=== PATIENT | female | born 1990 | race Caucasian/White ===

== ENCOUNTER 2019-06-16 13:31 | Emergency (ER) | payer OTHER ==
[2019-06-16 13:42] VITALS: PULSE 83; BMI 28.7
[2019-06-16] MEDS ORDERED: morphine CARPU-JECT 4 MG/1 ML DISP.SYRIN IVPUSH ONE (14:10)
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
[2019-06-16] MEDS ORDERED: MORPHINE SULFATE 2 MG/ML VIAL ONE (14:28)
[2019-06-16] MEDS ORDERED: morphine SULFATE 4 MG/ML VIAL ONE (14:28)
[2019-06-16] MEDS ORDERED: KETAMINE HCL 500 MG/10 ML VIAL IV ONE (14:28)
[2019-06-16] MEDS ORDERED: KETAMINE HCL 200 MG/20 ML VIAL ONE (14:29)
[2019-06-16 16:03] VITALS: BP 109/63
--- NOTE | 2019-06-16 18:29 | PDOC ---
Documentation entered by Kaylie Henry SCRIBE, acting as scribe for Sarina Haddad MD. Sarina Haddad MD: This documentation has been prepared by the Elaine ross Nirvannie, SCRIBE, under my direction and personally reviewed by me in its entirety. I confirm that the documentation accurately reflects all work, treatment, procedures, and medical decision making performed by me. Attending Attestation - Resident Resident Name: Chris Levy - ED Attending Attestation I have performed the following: I have examined & evaluated the patient, The case was reviewed & discussed with the resident, I agree w/resident's findings & plan, Exceptions are as noted - HPI HPI: 06/16/19 15:55 The patient is a 29 year old female, with a significant past medical history of multiple shoulder dislocations (approx 10x), who presents to the emergency department with left shoulder pain and deformity. She notes she was leaning forward to pick something up at which time her shoulder became dislocated. Patient notes her symptoms to be similar to previous shoulder dislocations. She denies any further trauma, head/neck pain, or focal weakness. She denies recent fevers, chills, headache or dizziness. She denies recent nausea, vomiting , diarrhea or constipation. She denies recent dysuria, frequency, urgency or hematuria. She denies recent chest pain or shortness of breath. Allergies: NKDA Primary Care Physician: Cookie Cerrato [facility] - Physicial Exam PE: 06/16/19 18:27 agree with resident exam. Patient is in moderate distress. + clear anterior dislocation of L shoulder on exam. Hand is cold but with intact radial pulse and good cap refill. - Medical Decision Making 06/16/19 18:28 pt presents to the ED complaining of anterior shoulder dislocation. Reduced via external rotation under conscious sedation in the Ed. No fx on xray. Will discharge home with ortho follow up.
== END 2019-06-16 17:35 | disposition home or self-care (01) ==
LOC: JER 13:31
PROC: 0RSKXZZ Reposition Left Shoulder Joint, External Approach (ICD-10-PCS; principal; 2019-06-16)
PROC: 3E033NZ Introduction of Analgesics, Hypnotics, Sedatives into Peripheral Vein, Percutaneous Approach (ICD-10-PCS; 2019-06-16)
PROC: 3E030FZ Introduction of Intracirculatory Anesthetic into Peripheral Vein, Open Approach (ICD-10-PCS; 2019-06-16)
DX: M24.412 Recurrent dislocation, left shoulder (principal); X50.1XXA Overexertion from prolonged static or awkward postures, initial encounter; Y93.89 Activity, other specified; Y92.89 Other specified places as the place of occurrence of the external cause; Y99.8 Other external cause status; Z87.828 Personal history of other (healed) physical injury and trauma
CPT/HCPCS: 73030-TC-LT-FY; 99283-25

== ENCOUNTER 2019-12-23 04:45 | Day surgery (SDC) | payer OTHER ==
[2019-12-19 18:07] VITALS: BMI 30.9
[2019-12-23] MEDS ORDERED: ACETAMINOPHEN 325 MG TABLET (FP) PO ONE (07:00)
[2019-12-23] MEDS ORDERED: GABAPENTIN 300 MG CAPSULE PO ONE (07:00)
[2019-12-23] MEDS ORDERED: CELECOXIB 200 MG CAPSULE PO ONE (07:00)
[2019-12-23] MEDS ORDERED: ROPIVACAINE HCL 0.5% 30ML VIAL ONE (07:09)
--- NOTE | 2019-12-23 07:38 | HP ---
History & Physical Update - History History: No Change - Physical Physical: No Change - Assessment Assessment: No Change - Plan Plan: No Change
[2019-12-23] MEDS ORDERED: ROCURONIUM BROMIDE 50 MG/5 ML SYRINGE ONE ×2 (07:42→08:42)
[2019-12-23] MEDS ORDERED: fentaNYL CITRATE 250 MCG/5 ML VIAL ONE (07:43)
[2019-12-23] MEDS ORDERED: SUCCINYLCHOLINE CHLORIDE 200 MG/10 ML SYRINGE ONE (07:43)
[2019-12-23] MEDS ORDERED: PROPOFOL 20 ML ONE ×2 (07:43)
[2019-12-23] MEDS ORDERED: MIDAZOLAM HCL 2 MG/2 ML SINGLE DOSE VIAL ONE (07:43)
[2019-12-23] MEDS ORDERED: LIDOCAINE HCL 2% JELLY (5 ML/TUBE) ONE (07:45)
[2019-12-23] MEDS ORDERED: EPHEDRINE SULFATE/0.9% NACL/PF 50 MG/10 ML SYRINGE NR ONE (08:07)
[2019-12-23] MEDS ORDERED: PHENYLEPHRINE HCL 10 MG/1 ML SINGLE DOSE VIAL ONE (08:09)
[2019-12-23] MEDS ORDERED: TRANEXAMIC ACID 1000 MG/10 ML VIAL ONE (08:44)
[2019-12-23] MEDS ORDERED: HYDROmorphone HCl 2 MG/ML VIAL ONE (10:52)
[2019-12-23] MEDS ORDERED: NEOSTIGMINE METHYLSULFATE 0.5 MG/ML - 10 ML MDV ONE (11:29)
[2019-12-23] MEDS ORDERED: GLYCOPYRROLATE 0.2 MG/1 ML VIAL ONE (11:29)
[2019-12-23] MEDS ORDERED: KETOROLAC TROMETHAMINE 30 MG/1 ML VIAL ONE (11:40)
[2019-12-23] MEDS ORDERED: LIDOCAINE HCL/PF 2% SDV 5ML VIAL ONE (11:40)
[2019-12-23] MEDS ORDERED: ceFAZolin SODIUM 1 GM VIAL ONE (11:40)
[2019-12-23] MEDS ORDERED: DEXAMETHASONE SOD PHOSPHATE 4 MG/1 ML VIAL ONE (11:40)
[2019-12-23] MEDS ORDERED: VANCOMYCIN 1,000 MG VIAL (RESTRICTED TO ID ONLY) ONE (11:40)
[2019-12-23] MEDS ORDERED: ESMOLOL HCL 100,000 MCG/10 ML VIAL ONE (11:51)
[2019-12-23] MEDS ORDERED: PROMETHAZINE HCL 25 MG/1 ML VIAL ONE (12:33)
[2019-12-23] MEDS ORDERED: oxyCODONE HCL 5 MG TABLET PO PRN ×3 (12:43→14:31)
[2019-12-23] MEDS ORDERED: ONDANSETRON 4 MG/2 ML VIAL IVPUSH PRN (12:43)
[2019-12-23] MEDS ORDERED: PROMETHAZINE HCL 25 MG/1 ML VIAL IVPUSH PRN (12:43)
[2019-12-23] MEDS ORDERED: IBUPROFEN 400 MG TABLET (FP) PO PRN (14:31)
[2019-12-23] MEDS ORDERED: ACETAMINOPHEN 325 MG TABLET (FP) PO PRN (14:31)
--- NOTE | 2019-12-23 14:40 | OPR ---
Procedure: Left shoulder anterior capsulorrhaphy with coracoid bone transfer and conjoint tendon transfer (Latarjet): CPT 07410 Preoperative Diagnoses: Left shoulder recurrent instability Postoperative Diagnoses: Left shoulder recurrent instability Surgeon: Stan Benavidez DO Assistants: Russell Ha DO Anesthesia: General Anesthesia and Local infiltration analgesic with Rop ivicaine: suprascapular nerve, axillary nerve, local superficial field Estimated Blood Loss: 50 mL Drains: None Total IV Fluids: Per anesthesia record Specimens: None Implants: (2) 4.0mm cannulated partially threaded screws (Lau and NephRemicalm), 1.9mm SutureFix [place] Complications: None Disposition: PACU Condition: Hemodynamically stable Indications: Jossie Melton presented to us with chronic left shoulder pain and recurrent anterior instability that failed conservative measures. Her symptoms, signs, and imaging were consistent with the above noted diagnosis. She ultimately elected to proceed with surgical intervention after discussion of the risks, benefits, alternatives. 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 Due to the significant amount of bone loss, we agreed to proceed with an open stabilization with coracoid bone transfer. We discussed risks including but not limited to, bleeding, pain, infection, scarring, damage to neurovascular structures, blood clots, pulmonary embolus, need for additional surgery, incomplete relief of pain, and incomplete return of function. She expressed understanding and wished to proceed. She underwent preoperative medical evaluation clearance and optimization prior to surgery. Procedure Details: She was identified in the preoperative area. The left shoulder was marked as the operative site and consent was completed and confirmed. She was later transferred to the operating room and placed in supine position the operating room. Anesthesia was induced without difficulty. She was repositioned into beach chair with all bony prominences appropriately padded. The neck was in neutral alignment. The left upper extremity was prepped and draped in standard sterile fashion. A surgical time-out was performed identifying the correct patient, procedure, and site. Antibiotics were given within 1 hour prior to surgical incision. Examination under anesthesia: Passive range of motion of the left shoulder showed forward elevation of 170, abduction 100, external rotation at side 60, SABER 90, SABIR 40. This was compared to her contralateral shoulder which shows forward elevation of 170, abduction 100 external rotation at side 60, SABER 90, SABIR 40. There was grade III anterior translation of the left shoulder. We began the procedure with an incision from the inferior tip of the coracoid approximately 8 cm inferior towards the axillary fold. Sharp dissection was carried out through the subcutaneous tissues. Self-retaining retractors were placed. Subcutaneous flaps were developed. Deltopectoral interval was identified and cephalic vein was also identified, protected, and mobilized laterally. We developed a subdeltoid and subpectoral space, here we identified the coracoid process. We placed retractors superiorly. We divided the clavipectoral fascia lateral to the conjoint tendon and identified the CA ligament. Once self-retaining retractors were placed, we externally rotated the arm visualizing the coracoacromial ligament. We divided this approximately 1 cm from its lateral insertion onto the coracoid. We also divided the coracohumeral ligament inferiorly heading towards the lateral aspect of the coracoid. We then internally rotated the arm and turned our attention to the medial aspect of the coracoid. The pectoralis minor was sharply tenotomized subperiosteally off the medial aspect of the coracoid. We did not extend our incision medial to the tip of the coracoid not to disrupt the vascular supply to the coracoid bone graft. We worked our way along the medial aspect of the coracoid and inferiorly clearing the tissue using a blunt retractor and electrocautery. We found the bend of the coracoid as it turned into the scapular body. We placed a retractor medially to protect the medial structures as well as laterally. We used a curved angle blade 90 degrees to begin our coracoid osteotomy. This began our cut as we cut from medial to lateral and protected the inferior medial structures. We then completed the cut with a curved half-inch osteotome. Sharp edges were then resected with rongeur. We gained control of the coracoid bone block, released the coracohumeral ligament and remaining rotator cuff interval tissue from the lateral aspect of the coracoid and gently divided the tissue inferiorly. We now had obtained both the conjoint tendon as well as the coracoid bone for later transfer into the anterior-inferior scapular neck. We placed this aside under the pectoralis major and turned our attention to exposure of the anterior-inferior glenoid. With self-retaining retractors in place, we externally rotated the arm bringing the subscapularis muscle into view. We removed the bursal tissue over the subscapularis tendon and divided the subscapularis inline with the muscle fibers at its approximate midpoint through its natural raphe. Curved Ahmadi scissor was used to do this and was done sharply extending laterally into the lesser tuberosity insertion. We identified the underlying capsular tissue and dissected the muscular tissue above this and away from capsular tissue. We used a lap sponge and pushed it into the space above the capsule underneath the subscapularis muscle developing a pocket space in front of the anterior glenoid and scapular neck. We then placed anterior glenoid retractor here and blunt Hohmann inferiorly underneath the glenoid. We were able to palpate the axillary nerve and protect it throughout the case. Superior retraction was achieved with appendiceal retractor. We were then able to visualize the anterior capsular tissue that was clearly lax. We used a 15 blade to make a horizontal transection of the anterior capsule. We identified the inferior leaflet for later plication. We inserted a Fukuda retractor to retract the humeral head laterally. We resected the anterior-inferior aspect of the capsule with electrocautery as well as prior sutures and suture material. Here we identified an anterior-inferior glenoid bony defect of approximately 20% of the glenoid face that was impacted and crushed in more medially in the anterior scapular neck. We used emilee to freshen the surface of the anterior scapular neck in preparation for receiving the bone graft. We returned our attention to preparation of the coracoid bone graft. Its undersurface was then flattened with the oscillating saw so there was a nice flat bony bed for fixation against the anterior scapular neck. We used a 2.7 drill from a 4-0 cannulated Lau and Nephew set and drilled 2 holes through the coracoid bone graft approximately 1 cm apart. The holes were identified with electrocautery on its superior surface and we selected a 36 mm partially threaded screw and placed this through the inferior screw hole. We then used the same drill to drill across the scapular neck as parallel as possible to the glenoid face inferiorly where we felt appropriate position of the graft would be. The graft was then passed through the subscapularis split and inferiorly into the anterior scapular neck. The screw was tightened down and then we used a 2.7 mm drill again in the superior screw through the bone graft through the scapular neck again as parallel as possible to the glenoid face. This screw measured 32 mm and another partially threaded 4-0 cannulated screw was placed through the bone graft into the scapular neck with good fixation. The inferior screw was removed and replaced with a 32mm screw. These were tightened down with 2 finger tightness. This achieved excellent fixation of our bone graft as well as fixed our muscle tendon transfer through the subscapularis into the anterior scapular neck. It was flushed with the glenoid face and did not extend prominently. Fluoroscopy was used to verify screw length and that no screws violating the glenoid articular surface on multiple views We turned our attention to capsular plication. We inserted a double loaded 1.9mm SutureFix anchor into the glenoid. We placed this after drilling the glenoid bone just at the glenoid rim. The first anchor did not achieve adequate fixation and was removed. Another anchor was placed without difficulty and had excellent fixation. A single suture limb from each suture was shuttled through the anterior-inferior capsular tissue. The sutures were tied bringing it anterosuperiorly. This allowed the graft to become extra-articular. This achieved excellent recreation of the anterior capsular tissues. We then closed the subscapularis split laterally with #2 Fiberwire interrupted [id number] stitches. There was excellent fixation of both the bone graft and the tendon inferiorly. The shoulder was stable. There was no undue tension on the brachial plexus or nerves. We closed the wound in a layered fashion. The deltopectoral interval was closed with running #1 Ethibond stitch followed by buried 0 and 2-0 Vicryl deep tissues in an interrupted fashion. We then closed the skin with 3-0 Monocryl and Dermabond. The shoulder was sterilely dressed and the arm was placed in a shoulder immobilizer. Attestation for therapeutic recreation assistant: Dr. Russell Ha acted as the therapeutic recreation assistant. There was no qualified resident or physician quality control assistant available to do so. Post-operative Details: I spoke with the family and patient regarding the operation after surgery. Postoperative examination showed a normal neurovascular exam. Postoperative rehabilitation: Latart Protocol. She will remain in a shoulder immobilizer for 3-4 weeks. Early passive range of motion okay with limit of forward elevation 90 and external rotation 30 and advance as tolerated.
[2019-12-23] MEDS ORDERED: ACETAMINOPHEN 325 MG TABLET (FP) ONE (15:25)
[2019-12-23 16:16] VITALS: TEMP 98
[2019-12-23 16:22] VITALS: BP 131/71; PULSE 81
== END 2019-12-23 16:10 | disposition home or self-care (01) ==
LOC: JASU-SURG 04:45 → JASUSAT 04:45
PROVIDERS: ATTEND Orthopaedic Surgery
PROC: 0LX40ZZ Transfer Left Upper Arm Tendon, Open Approach (ICD-10-PCS; 2019-12-23)
PROC: 0RQK0ZZ Repair Left Shoulder Joint, Open Approach (ICD-10-PCS; principal; 2019-12-23 08:42)
DX: M24.412 Recurrent dislocation, left shoulder (principal)
CPT/HCPCS: 76000-TC-FY; 81025; 94760

== ENCOUNTER 2021-02-10 16:12 | Emergency (ER) | payer OTHER ==
[2021-02-10 16:34] VITALS: BP 130/88; PULSE 93; TEMP 98.2; BMI 29.2
[2021-02-10] MEDS ORDERED: IBUPROFEN 600 MG TABLET (FP) PO ONE ×2 (16:36→16:39)
== END 2021-02-10 18:19 | disposition home or self-care (01) ==
LOC: JERFT 16:12
DX: S93.602A Unspecified sprain of left foot, initial encounter (principal); M25.511 Pain in right shoulder; W19.XXXA Unspecified fall, initial encounter
CPT/HCPCS: 71250-TC; 73030-TC-RT-FY; 73610-TC-LT-FY; 73630-TC-LT; 99284-25

== ENCOUNTER 2023-04-06 06:00 | Emergency (ER) | payer OTHER ==
[2023-04-06 06:14] VITALS: RESP 18; TEMP 97.4; BMI 31.1
[2023-04-06] MEDS ORDERED: ACETAMINOPHEN 1000 MG/100 ML BAG IVPB ONE (06:40)
[2023-04-06] MEDS ORDERED: ACETAMINOPHEN INJECTION 100 ML IVPB ONE (06:41)
[2023-04-06] MEDS ORDERED: SODIUM CHLORIDE 0.9% 500 ML INFUS.BAG IV ONE (07:30)
[2023-04-06 08:18] LABS: BASO % 0.8 % (0-2.0); EOS % 1.4 % (0-4.5); HEMATOCRIT 38.2 % (32.4-45.2); HEMOGLOBIN 12.5 GM/dL (10.7-15.3); LYMPH % 32.5 % (8-40); MCHC 32.8 g/dl (32.0-36.0); MEAN CELL VOLUME 85.3 fl (80-96); MEAN PLT VOLUME 8.4 fl (7.5-11.1); MONO % 9.1 % (3.8-10.2); NEUT % 56.2 % (42.8-82.8); PLATELET COUNT 361 10^3/uL (134-434); RBC 4.48 M/mm3 (3.60-5.2); RDW 14.1 % (11.6-15.6); WHITE BLOOD COUNT 7.3 K/mm3 (4.0-10.0)
[2023-04-06 08:24] LABS: POTASSIUM 4.2 mmol/L (3.5-5.1)
[2023-04-06 08:26] LABS: BLOOD UREA NITROGEN 14.3 mg/dL (7-18); CALCIUM 8.5 mg/dL (8.5-10.1)
[2023-04-06 08:27] LABS: ALBUMIN 3.4 g/dl (3.4-5.0)
[2023-04-06 08:32] LABS: BILIRUBIN,TOTAL 0.3 mg/dL (0.2-1); TOT PROT 6.7 g/dl (6.4-8.2)
[2023-04-06] MEDS ORDERED: PSEUDOEPHEDRINE HCL 30 MG TABLET PO ONE (08:35)
[2023-04-06] MEDS ORDERED: PSEUDOEPHEDRINE HCL 60 MG TABLET ONE (09:00)
[2023-04-06 10:27] VITALS: BP 117/88; PULSE 74
== END 2023-04-06 10:28 | disposition home or self-care (01) ==
LOC: JER 06:00
PROC: 3E033NZ Introduction of Analgesics, Hypnotics, Sedatives into Peripheral Vein, Percutaneous Approach (ICD-10-PCS; principal; 2023-04-06)
DX: R51.9 Headache, unspecified (principal); R11.10 Vomiting, unspecified; J06.9 Acute upper respiratory infection, unspecified; R05.9 Cough, unspecified; J32.9 Chronic sinusitis, unspecified; Z20.822 Contact with and (suspected) exposure to COVID-19
CPT/HCPCS: 0241U-QW; 36415; 71046-TC-FY; 80053; 84703; 85025; 87651; 99284-25